=== PATIENT | female | born 1955 | race Caucasian/White ===

== ENCOUNTER 2018-06-14 10:39 | Outpatient (CLI) | payer OTHER | END 2018-06-14 10:40 | disposition home or self-care (01) | LOC: BICCT 10:39 | PROVIDERS: ATTEND Urology | DX: N20.0 Calculus of kidney (principal); R35.0 Frequency of micturition | CPT/HCPCS: 74176 ==

== ENCOUNTER 2018-11-10 14:27 | Outpatient (CLI) | payer OTHER ==
--- NOTE | 2018-11-10 19:29 | RAD ---
LUMBAR SPINE BENDING MINIMUM FOUR VIEWS: HISTORY: M79.18, low back pain. COMPARISON: CT abdomen and pelvis from 06/14/2018. FINDINGS: There is no acute fracture or malalignment. There is mild levoscoliosis of the lumbar spine, centere d at L4-L5 and at L5-S1. 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 Numerous phleb oliths in the pelvis. No acute fracture or malalignment. No significant listhesis with flexion or e xtension. Mild narrowing of the L4-L5 and of L5-S1 disk spaces. IMPRESSION: 1. Mild spondylosis and levoscoliosis. 2. No significant translation with flexion or extension. POS: TPC
--- NOTE | 2018-11-10 19:33 | MRI ---
MRI LUMBAR SPINE WITHOUT CONTRAST: HISTORY: M79.18, low back pain and SI joint pain. COMPARISON: Radiographs from the same day. FINDINGS: The conus medullaris terminates at the superior endplate of L1. Aortic size is nonaneurysmal. The T2 hyperintense focus at the anterior cortex, interpolar right kidney, is incompletely evaluated on this examination, measuring approximately 8 mm. No retroperitoneal adenopathy. No marrow infiltrative process. Levels are as follows: L1-L2: Minimal posterior degenerative disk space height loss. No neural foraminal or spinal canal n arrowing. No facet arthrosis. L2-L3: Minimal disk desiccation. No neural foraminal or spinal canal narrowing. L3-L4: Mild disk desiccation. Circumferential disk osteophyte complex, very mild. There are small effusions within both facet joints. There is a superimposed left subforaminal annular fissure. Ther e is moderate left and mild right-sided neural foraminal narrowing. The spinal canal is not signific antly narrowed. L4-L5: There is a low-grade broad-based posterior disk osteophyte complex, greatest in the subforami nal zones. Moderate facet arthropathy. There is mild bilateral neural foraminal narrowing. No sign ificant spinal canal narrowing. L5-S1: There is 2 mm of degenerative retrolisthesis. Moderate facet arthrosis. Moderate posterior degenerative disk space height loss and broad-based posterior disk osteophyte complex. There is mild bilateral neural foraminal narrowing. IMPRESSION: Low-grade spondylosis, as described, worst at L3-L4 and at L5-S1. No significant neural foraminal or spinal canal narrowing. POS: TPC
== END 2018-11-10 14:28 | disposition home or self-care (01) ==
LOC: SCSMRI 14:27
PROVIDERS: ATTEND Physician Assistant Surgical
DX: M79.18 Myalgia, other site (principal); M53.3 Sacrococcygeal disorders, not elsewhere classified; M47.816 Spondylosis without myelopathy or radiculopathy, lumbar region; M41.9 Scoliosis, unspecified; M47.817 Spondylosis without myelopathy or radiculopathy, lumbosacral region
CPT/HCPCS: 72120; 72148

== ENCOUNTER 2019-07-27 12:35 | Day surgery (SDC) | payer OTHER ==
[2019-07-26 11:32] VITALS: BMI 17.8
[~2019-07-27 12:35] MED LIST: EPINEPHrine 0.3 MG in Ophthalmic Irrigation Solution 500 ML IVP SCH
[2019-07-27] MEDS ORDERED: Phenylephrine 2.5% Ophth Soln 5 ML BOT ONE (14:18)
[2019-07-27] MEDS ORDERED: Cyclopentolate 1% Opth Drop 2 ML BOT ONE (14:18)
[2019-07-27] MEDS ORDERED: Midazolam HCl 2 mg/2 ml Vial ONE (15:51)
[2019-07-27] MEDS ORDERED: PROPOFOL 20 ML ONE (15:51)
--- NOTE | 2019-07-27 18:42 | OP ---
DATE OF PROCEDURE: 07/27/2019 PRINCIPAL PREOPERATIVE DIAGNOSIS: Macular pucker, epiretinal membrane, right eye. POSTOPERATIVE DIAGNOSIS: Macular pucker, epiretinal membrane, right eye. PROCEDURES PERFORMED: 1. 25-gauge pars plana vitrectomy, right eye. 2. Epiretinal membrane removal/internal limiting membrane removal, right eye. ESTIMATED BLOOD LOSS: None. SPECIMENS REMOVED: None. COMPLICATIONS: None. ANESTHESIA: MAC with retrobulbar block. SUMMARY OF OPERATION: The patient was identified in the preop holding area, where the correct eye being the right eye was marked for surgery. The patient was taken to the operating room, where MAC anesthesia was induced. A retrobulbar block was administered to the right eye. The block consisted of 1:1 ratio of 4% lidocaine 0.75% Marcaine. Total of 5 mL was administered. The right eye was prepped and draped in usual sterile ophthalmic fashion for surgery. A wire lid speculum was placed. A standard 25-gauge pars plana vitrectomy platform was fashioned with trocars placed approximately 4 mm from posterior to the limbus. The infusion was noted to be within the vitreous cavity prior to being turned on to infusion pressure of 30 mmHg. The light pipe Micro vitrector introduced into the eye under visualization of RESIGHT viewing system. A careful core and peripheral shave vitrectomy were performed. Following vitrectomy, ICG dye was used to stain the internal limiting membrane. Using the Joby ILM forceps, an internal limiting membrane/epiretinal membrane complex removal was performed in a circumferential fashion about the fovea. The peel extended approximately 2 disk diameters in radius from the fovea circumferentially. Following peeling, the Micro vitrector was reintroduced in the eye to remove the residual vitreous debris. A 360-degree scleral depressed exam of the periphery revealed no defects. The cannulas were sequentially removed, and all sclerotomies were noted to be watertight. Subconjunctival Ancef and Kenalog were injected. The wire lid speculum was removed followed by application of TobraDex ophthalmic ointment and a light patch and shield. The patient tolerated the procedure well and was taken to outpatient recovery area in good condition. Job ID: [id number]
== END 2019-07-27 17:20 | disposition home or self-care (01) ==
LOC: SDC 12:35
PROVIDERS: ATTEND Ophthalmology Retina Specialist
PROC: 08943ZZ Drainage of Right Vitreous, Percutaneous Approach (ICD-10-PCS; principal; 2019-07-27)
DX: H35.371 Puckering of macula, right eye (principal); Z88.5 Allergy status to narcotic agent
CPT/HCPCS: J0171; J2250; J2704

== ENCOUNTER 2022-04-15 07:30 | Outpatient (CLI) | payer MEDICARE | END 2022-04-15 07:31 | disposition home or self-care (01) | LOC: SCSMRI 07:30 | PROVIDERS: ATTEND Family Medicine | DX: R51.9 Headache, unspecified (principal); R42 Dizziness and giddiness; Z85.841 Personal history of malignant neoplasm of brain | CPT/HCPCS: 70553 ==

== ENCOUNTER 2022-08-31 12:45 | Outpatient (CLI) | payer MEDICARE | END 2022-08-31 12:46 | disposition home or self-care (01) | LOC: BICMAMMO 12:45 | PROVIDERS: ATTEND Obstetrics & Gynecology | DX: R92.8 Other abnormal and inconclusive findings on diagnostic imaging of breast (principal) | CPT/HCPCS: 76642; 77065; G0279 ==

== ENCOUNTER 2023-06-03 12:44 | Outpatient (CLI) | payer MEDICARE | END 2023-06-03 12:45 | disposition home or self-care (01) | LOC: ULT 12:44 | PROVIDERS: ATTEND Urology | DX: N20.0 Calculus of kidney (principal) | CPT/HCPCS: 76770 ==